=== PATIENT | female | born 1945 | race Caucasian/White ===

== ENCOUNTER 2021-09-14 17:16 | Emergency (ER) | payer OTHER ==
[~2021-09-14] VITALS: Ht 154.9 cm; Wt 45.8 kg
[~2021-09-14 17:16] MED LIST: CRESTOR5 MG; MOBIC7.5 MG; NEURONTIN800 MG; SYNTHROID75 MCG
[2021-09-14] MEDS ORDERED: EVENITY (2210 MG/2.3 SQ (17:40)
[2021-09-14] MEDS ORDERED: METRONIDAZOLE500 MG PO (21:58)
[2021-09-14] MEDS ORDERED: CIPRO500 MG PO (21:58)
== END 2021-09-14 22:24 | disposition home or self-care (01) ==
LOC: ER 17:16
DX: K57.30 Diverticulosis of large intestine without perforation or abscess without bleeding (principal); Z03.818 Encounter for observation for suspected exposure to other biological agents ruled out

== ENCOUNTER 2022-02-02 08:20 | Day surgery (SDC) | payer OTHER ==
[~2022-02-02 08:20] MED LIST changes: +CIPRO500 MG PO; +DICY20TA PO; +EVENITY (2210 MG/2.3 SQ; +METRONIDAZOLE500 MG PO; +PROAIR HFA8.5 GM IH; +SYMBICORT 16010.2 GM IH
[2022-02-02] MEDS ORDERED: ULTRAM50 MG PO (14:52)
[2022-02-02] MEDS ORDERED: MIRALAX17 GM PO (14:52)
[2022-02-02] MEDS ORDERED: TYLENOL ARTHRI650 MG PO (14:52)
== END 2022-02-02 20:05 | disposition home or self-care (01) ==
LOC: CIR.AMB 08:20
PROVIDERS: ATTEND Surgery
DX: K41.30 Unilateral femoral hernia, with obstruction, without gangrene, not specified as recurrent (principal); K40.90 Unilateral inguinal hernia, without obstruction or gangrene, not specified as recurrent; Z20.822 Contact with and (suspected) exposure to COVID-19; I10 Essential (primary) hypertension; E03.9 Hypothyroidism, unspecified; J45.909 Unspecified asthma, uncomplicated; M19.90 Unspecified osteoarthritis, unspecified site

== ENCOUNTER 2022-12-16 11:51 | Emergency (ER) | payer OTHER ==
[~2022-12-16] VITALS: Ht 152.4 cm; Wt 53.1 kg
[~2022-12-16 11:51] MED LIST changes: +MIRALAX17 GM PO; +TYLENOL ARTHRI650 MG PO; +ULTRAM50 MG PO
== END 2022-12-16 15:21 | disposition home or self-care (01) ==
LOC: ER 11:51
DX: J45.901 Unspecified asthma with (acute) exacerbation (principal); I10 Essential (primary) hypertension; E03.9 Hypothyroidism, unspecified; Z20.822 Contact with and (suspected) exposure to COVID-19

== ENCOUNTER 2024-10-09 13:03 | Outpatient (CLI) | payer OTHER | END 2024-10-09 13:13 | disposition home or self-care (01) | LOC: RAD 13:03 | PROVIDERS: ATTEND Orthopaedic Surgery | DX: M79.641 Pain in right hand (principal) ==